=== PATIENT | male | born 1985 | race Caucasian/White ===

== ENCOUNTER → 2018-02-27 | Outpatient (REF) ==
--- NOTE | 2018-02-27 16:28 | Diagnostic Imaging Report ---
Right knee at 1:35 p.m. INDICATION: Knee pain. Three views were obtained. There are no prior studies available for comparison. FINDINGS: There is no fracture, dislocation or acute bony abnormality evident. The knee joint is well maintained. The soft tissues are unremarkable. IMPRESSION: 1. There is no evidence for an acute bony abnormality. 2. If there is clinical concern regarding internal derangement, then MRI would be recommended for additional study. Dictated by: Dictated on workstation # [id number]
== END | disposition home or self-care (01) ==
LOC: OCC 12:52
PROVIDERS: ATTEND Nurse Practitioner Family
CPT/HCPCS: 73562